=== PATIENT | female | born 1960 | race Caucasian/White ===

== ENCOUNTER 2016-08-16 11:31 | Emergency (ER) | payer SELFPAY ==
[~2016-08-16] VITALS: Ht 165.1 cm; Wt 113.4 kg
[2016-08-16 11:35] VITALS: BP 139/86
[2016-08-16] MEDS ORDERED: DIAZEPAM 10 MG/2 ML DISP.SYRIN. IV ONE (12:00)
[2016-08-16] MEDS ORDERED: LIDO:MAALOX 1:1 20 ML SINGLE DOSE PO ONE (12:00)
[2016-08-16] MEDS ORDERED: GLUCAGON,HUMAN RECOMBINANT 1 MG KIT. IV ONE (12:00)
--- NOTE | 2016-08-16 13:53 | PHYS DOC ---
General Chief Complaint: FOREIGN BODY Stated Complaint: MEAT STUCK IN THROAT Time Seen by MD: 11:47 Source: patient Exam Limitations: no limitations Problems: History of Present Illness Initial Comments Pt is 56/F to ED c/o esophageal foreign body. Pt states about 1800 yesterday she caught a piece of BBQ pork in her throat. She has been unable to clear it, she can swallow liquids/saliva for very short periods followed by emesis. She has repeated this cycle to this point. Has h/ o GERD/strictures, had dilatation years ago and has had no issues up to this point. No prearrival treatment, no CP/sob. Timing/Duration: 24 hours Severity: severe Modifying Factors: worse with eating Associated Symptoms: cough, nausea/vomiting, other Allergies: Coded Allergies: No Known Drug Allergies (Unverified , 08/19/13) Past Medical History Medical History: GERD, other (depression, GERD, esophageal stricture, HTN) Surgical History: other (esophageal dilatation, CS) Family History Significant Family History: no pertinent family hx Social History Smoker: quit greater than 1 year Alcohol: none Drugs: none Review of Systems Constitutional: denies chills, denies fever, denies weakness EENTM: see HPI Respiratory: see HPIdenies shortness of breath, denies wheezing Cardiovascular: denies chest pain, denies palpitations Gastrointestinal: see HPIdenies abdominal pain Musculoskeletal: denies back pain, denies joint swelling, denies neck pain Psychiatric/Neurological: denies headache, denies numbness, denies paresthesia Physical Exam General Appearance: WD/WN, moderate distress Ear, Nose, Throat: hearing grossly normal, normal ENT inspection, normal pharynx (bolus not visualized) Neck: non-tender, supple Respiratory: normal breath sounds, no respiratory distress Cardiovascular: normal peripheral pulses, regular rate, rhythm Gastrointestinal: soft (ND, generalized abd muscle TTP no r/g/mass) Rectal: deferred Back: no CVA tenderness, no vertebral tenderness Extremities: non-tender, normal inspection 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 Pt continues to retch/vomit. 1352: Staff paged GI for consultation, staff notified that GI will consult with [facility] hospitalist after transfer. Pt will have to transfer to [facility], GI will consult with [facility] hospitalist only. [facility] hospitalist paged. [phone]: Dr Pro accepts pt for medsurg admission. Departure Time of Disposition: 14:46 Disposition: 05 XFER OTHER Diagnosis: esophageal foreign body, h/o GERD/strictures Condition: STABLE Additional Instructions: EMS transfer to [facility] Dr Pro is accepting. QUINTON MCCORMICK DO Aug 16, 2016 13:53
[2016-08-16] MEDS ORDERED: IV NORMAL SALINE 50ML 50 ML ONE (16:21)
[2016-08-16] MEDS ORDERED: PROMETHAZINE 25 MG/ML VIAL IV ONE (16:21)
[2016-08-16] MEDS ORDERED: PROMETHAZINE 12.5 MG in IV NORMAL SALINE 50ML 50 ML IV ONE (16:30)
== END 2016-08-16 16:37 | disposition short-term general hospital (02) ==
LOC: ER 11:31
DX: T18.128A Food in esophagus causing other injury, initial encounter (principal); K21.9 Gastro-esophageal reflux disease without esophagitis; I10 Essential (primary) hypertension; Z87.891 Personal history of nicotine dependence; X58.XXXA Exposure to other specified factors, initial encounter; Y93.89 Activity, other specified; Y99.8 Other external cause status; Y92.89 Other specified places as the place of occurrence of the external cause
CPT/HCPCS: 96374; 96375; 99285; J1610; J2550

== ENCOUNTER → 2019-06-21 | Outpatient (CLI) | payer OTHER ==
[2019-06-21 08:17] LABS: BASO # 0.1 x10^3/uL (0.0-0.2); BASO % 1 % (0-3); EOS # 0.3 x10^3/uL (0.0-0.7); EOS % 5 % (0-3); HEMATOCRIT 42.1 % (36.0-47.0); HEMOGLOBIN 13.9 g/dL (12.0-15.5); LYMPH # 1.5 x10^3/uL (1.0-4.8); LYMPH % 30 % (24-48); MEAN CORPUSCULAR HEMOGLOBIN 28 pg (25-35); MEAN CORPUSCULAR HGB CONC 33 g/dL (31-37); MEAN CORPUSCULAR VOLUME 85 fL (79-100); MONO # 0.4 x10^3/uL (0.0-1.1); MONO % 8 % (0-9); NEUT # 2.7 x10^3uL (1.8-7.7); NEUT % 55 % (31-73); PLATELET COUNT 267 x10^3/uL (140-400); RED BLOOD COUNT 4.93 x10^6/uL (3.50-5.40); RED CELL DISTRIBUTION WIDTH 14.9 % (11.5-14.5); WHITE BLOOD COUNT 4.8 x10^3/uL (4.0-11.0)
[2019-06-21 08:20] LABS: ALBUMIN 3.2 g/dL (3.4-5.0); ALBUMIN/GLOBULIN RATIO 0.8 (1.0-1.7); CALCIUM 8.6 mg/dL (8.5-10.1); CREATININE 0.8 mg/dL (0.6-1.0); GFR 72.9; POTASSIUM 3.8 mmol/L (3.5-5.1); TOTAL BILIRUBIN 0.4 mg/dL (0.2-1.0); TOTAL PROTEIN 7.2 g/dL (6.4-8.2)
--- NOTE | 2019-06-21 08:42 | EKG ---
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
== END | disposition home or self-care (01) ==
LOC: LAB 07:37
PROVIDERS: ATTEND Anesthesiology
DX: Z01.818 Encounter for other preprocedural examination (principal)
CPT/HCPCS: 36415; 80053; 85025; 93005